=== PATIENT | male | born 1995 | race Two or more races ===

== ENCOUNTER 2018-02-03 16:01 | Emergency (ER) | payer SELFPAY ==
[~2018-02-03] VITALS: Ht 157.5 cm; Wt 63.5 kg
[~2018-02-03 16:01] MED LIST: NKM
[2018-02-03] MEDS ORDERED: Tetanus/Diptheria/Pertussis Vaccine 0.5ml Syr IM ONE (16:30)
[2018-02-03 17:15] VITALS: BP 121/80
--- NOTE | 2018-02-03 18:31 | Emergency Room Report ---
History of Present Illness General Chief Complaint: Medical Clearance Source: Patient Present Illness HPI 22-year-old male presents ED for evaluation. Patient brought in by [employer]. He is here for intermediate clearance. States that during arrest today he was injured. Complaining of left shoulder pain. Abrasion to left shoulder. 5 out of 10, dull, nonradiating. Tetanus unknown. Denies any other injuries. No other aggravating relieving factors. Denies any other associated symptoms Allergies: Coded Allergies: No Known Allergies (Unverified , 11/03/15) Patient History Past Medical History: none Past Surgical History: none Pertinent Family History: none Social History: Reports: drug use; Denies: smoking, alcohol use Immunizations: UTD Reviewed Nursing Documentation: PMH: Agreed; PSxH: Agreed Nursing Documentation-PMH Hx Cardiac Problems: No - SUBS ABUSE Hx Neurological Problems: Yes - back pain, left leg nerve pain Review of Systems All Other Systems: negative except mentioned in HPI Physical Exam Vital Signs Date Time Temp Pulse Resp B/P (MAP) Pulse Ox O2 Delivery O2 Flow Rate FiO2 02/03/18 16:02 97.8 90 16 118/79 99 Room Air 97.9 Sp02 EP Interpretation: reviewed, normal General Appearance: no apparent distress, alert, GCS 15, non-toxic Head: normocephalic Eyes: bilateral eye normal inspection, bilateral eye PERRL ENT: normal ENT inspection Neck: normal inspection Respiratory: chest non-tender, lungs clear, normal breath sounds, speaking full sentences Cardiovascular #1: regular rate, rhythm, no edema Gastrointestinal: normal bowel sounds, non tender, soft, non-distended, no guarding, no rebound Rectal: deferred Genitourinary: no CVA tenderness Musculoskeletal: tender - L shoulder Neurologic: alert, oriented x3, responsive, motor strength/tone normal, sensory intact, speech normal Psychiatric: normal inspection Skin: abrasions - L shoulder Lymphatic: normal inspection Medical Decision Making Diagnostic Impression: Primary Impression: Medical clearance for incarceration Additional Impression: Abrasion of shoulder area Qualified Codes: S40.212A - Abrasion of left shoulder, initial encounter ER Course Hospital Course 22-year-old male presenting to ED complaining of left shoulder with abrasion. In police custody Differential diagnoses include: Fracture, dislocation, sprain, contusion Clinical course Patient placed on stretcher. After initial history and physical, I ordered TDAP and Xrays of L shoulder Xrays prelim read shows no acute fracture/dislocation. Patient is medically cleared Diagnosis - medical clearance for incarceration, abrasion of shoulder area Stable and discharged to police custody. apply ice, keep elevated. weight bear as tolerated. Followup with PMD. Return to ED if symptoms recur or worsen Other X-Ray Diagnostic Results Other X-Ray Diagnostic Results : X-Ray ordered: L shoulder # of Views/Limited Vs Complete: 3 View Indication: Pain EP Interpretation: Yes Interpretation: no dislocation, no soft tissue swelling, no fractures Impression: No acute disease Electronically Signed by: Electronically signed by Norbert Aguillon MD Last Vital Signs Date Time Temp Pulse Resp B/P (MAP) Pulse Ox O2 Delivery O2 Flow Rate FiO2 02/03/18 17:15 98.1 87 17 121/80 99 Room Air 208.6 Status: improved Disposition: D/C TO LAW ENFORCEMENT IN CUST Condition: Stable Departure Forms: Correction Clearance Patient Instructions: Shoulder Pain, Bine-dx-[place] Norbert Aguillon MD Feb 03, 2018 18:31
--- NOTE | 2018-02-04 10:52 | Diagnostic Imaging Report ---
. Indication: Pain Technique: XRAY Shoulder Compl L Comparison: None Findings: There is no evidence of acute fracture or dislocation. No focal soft tissue defect is appreciated. No radiopaque foreign body is seen. Imaged portions of the left lung are clear. Impression: No evidence of acute fracture or dislocation.
== END 2018-02-03 17:15 ==
LOC: EMR 16:27
DX: S40.212A Abrasion of left shoulder, initial encounter (principal); Y35.893A Legal intervention involving other specified means, suspect injured, initial encounter; Y92.9 Unspecified place or not applicable; Z23 Encounter for immunization
CPT/HCPCS: 90471; 90715; 99284